=== PATIENT | female | born 1935 | race Caucasian/White ===

== ENCOUNTER 2021-08-05 16:27 | Emergency (ER) | payer MEDICARE, SELFPAY ==
--- NOTE | ~2021-08-05 | XR_ITS ---
EXAM: XR wrist RT min 3V, XR forearm RT 2V HISTORY: swelling,bruising,PT CANNOT PINPOINT PAINFUL AREA COMPARISON: None available FINDINGS: Decreased mineralization. No acute fracture or dislocation. Scattered degenerative changes in the right wrist, hand, and elbow. IMPRESSION: No acute osseous finding in the right wrist or forearm. Reviewed, dictated and finalized at location K. IMPRESSION: No acute osseous finding in the right wrist or forearm.
--- NOTE | ~2021-08-05 | XR_ITS ---
EXAM: XR wrist LT min 3V, XR forearm LT 2V HISTORY: pain, swelling, bruising COMPARISON: None available FINDINGS: Decreased mineralization. Scattered degenerative changes in the rest, hand, and elbow. Sma ll osseous fragment projecting over the triquetrum in the oblique lateral view, with sclerotic margin s. No other fracture. No dislocation. IMPRESSION: Acute versus chronic left triquetral fracture. Correlate with point tenderness. No other acute or pot entially acute osseous finding in the left wrist or forearm. Reviewed, dictated and finalized at location K. IMPRESSION: Acute versus chronic left triquetral fracture. Correlate with point tenderness. No other acute or potentially acute osseous finding in the left wrist or forea rm.
[2021-08-05 16:30] VITALS: BP 130/74; PULSE 65; RESP 14; TEMP 36.4; O2SAT 98
[2021-08-05 16:39] VITALS: RESP 16
--- NOTE | 2021-08-05 17:57 | ED.FALL ---
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 Patient was seated in her chair, when she went to get up, the chair fell out behind her, causing her to fall to the ground and catching herself with her hands. Fall was witnessed by [facility] staff. She did not hit her head or lose consciousness. Patient denies any low back pain presently or at time of fall. Patient was evaluated by the TEAM ASSISTANT at the nursing facility about 4 hours after the fall, who recommended ED visit due to swelling swelling in bilateral wrists. Patient currently reporting some mild pain in her wrists. No paresthesias or difficulty moving her digits. Patient states that she was in her usual state of health this morning, and denies any chest pain, shortness of breath, headaches, weakness, lightheadedness. Related Data Allergies Allergy/AdvReac Type Severity Reaction Status Date / Time Sulfa (Sulfonamide Allergy Severe SWELLING Verified 08/05/21 16:44 Antibiotics) Review of Systems Review of Systems: Gen.: Denies fevers or chills Eyes: Denies eye pain or visual change ENT: Denies congestion Respiratory: Denies shortness of breath or cough CV: Denies chest pain or palpitations GI: Denies abdominal pain nausea, emesis or diarrhea denies burning, urgency, frequency or hematuria Musculoskeletal: Denies back pain or muscle pain Neuro: Denies numbness, tingling, weakness or focal weakness Skin: Denies rash Except as documented, all other systems reviewed and negative All systems reviewed & are unremarkable except as noted in HPI and below Exam Narrative: APPEARANCE: Well appearing, no pain in distress, well-nourished. Head: normocephalic and atraumatic. EYES: PERRLA/EOMI, conjunctivae clear NOSE: No nasal drainage EARS: External ear normal in appearance THROAT: Oropharynx is clear. Mucous membranes are moist. NECK: Supple. No adenopathy, no masses. RESPIRATORY: Airway patent, respirations nonlabored. Clear to auscultation bilaterally, no rales, rhonchi, wheezing. CARDIOVASCULAR: 2+ radial and ulnar pulses bilaterally. Brisk capillary refill. Regular rate and rhythm without murmurs, rubs, or gallops. ABDOMINAL: Normoactive bowel sounds. Soft, nontender, nondistended. No rebound tenderness or guarding. MUSCULOSKELETAL: Bilateral wrists with swelling and bruising over ulnar aspect. No bony tenderness along bilateral carpal bones, although wrist extension elicits pain in left proximal wrist. No snuff box tenderness bilaterally. Palpation of right forearm bones elicits pain in right wrist. Full range of motion of bilateral hands. No midline tenderness along CT or L-spine. Full range of motion of torso without pain. Ambulatory without pain. NEURO: Sensation intact over bilateral hands and forearms. Normal speech. No focal neurologic deficits. SKIN: Skin is warm and dry. No rashes. PSYCHIATRIC: Normal affect/mood. Course Vital Signs Vital signs: Vital Signs Temperature 97.5 F L 08/05/21 16:30 Pulse Rate 65 08/05/21 16:30 Respiratory Rate 14 08/05/21 16:30 Blood Pressure 130/74 08/05/21 16:30 Pulse Oximetry 98 08/05/21 16:30 Temperature 97.5 F L 08/05/21 16:30 Pulse Rate 65 08/05/21 16:30 Respiratory Rate 16 08/05/21 16:39 Blood Pressure 130/74 08/05/21 16:30 Pulse Oximetry 98 08/05/21 16:30 MDM - Fall MDM Narrative Medical decision making narrative: 85-year-old female here with bilateral wrist pain and swelling after a fall from seated earlier today. History consistent with mechanical fall, patient states the chair fell out from under her. She was in her usual state of health this morning and presently (aside from w
== END 2021-08-05 19:35 ==
PROVIDERS: Emergency Provider Emergency Medicine
DX: S62.102A Fracture of unspecified carpal bone, left wrist, initial encounter for closed fracture (principal); Z88.2 Allergy status to sulfonamides; W07.XXXA Fall from chair, initial encounter
CPT/HCPCS: 29125; 73090; 73110; 99284

== ENCOUNTER 2023-04-03 19:30 | Emergency (ER) | payer MEDICARE, SELFPAY ==
--- NOTE | ~2023-04-03 | XR_ITS ---
EXAMINATION: XR chest 2V Exam Date/Time: 04/03/2023 20:33 VISUAL SPECIALIST HISTORY: rsv, cough, r/o PNA Comparison: 07/14/2011. RESULT: Lines, tubes, and devices: None. Lungs and pleura: Streaky and subsegmental bibasilar opacities. Minimal posterior costophrenic angle blunting. Cardiomediastinal silhouette: Stable. Other: No acute osseous or upper abdominal finding. IMPRESSION: Subsegmental bibasilar atelectasis/consolidation. Small bilateral effusions. Reviewed, dictated and finalized at location K. AL SPECIALIST
[2023-04-03 19:28] VITALS: BP 126/69; PULSE 64; RESP 20; TEMP 37.4; O2SAT 94
[2023-04-03 19:37] VITALS: O2SAT 94
--- NOTE | 2023-04-03 21:16 | ED.GENADULT ---
HPI - General Adult General Chief complaint: Unspecified Stated complaint: Dx'd WITH RSV TODAY, FAMILY WANTS EVAL. Time Seen by Provider: 04/03/23 19:36 Source: patient and family Mode of arrival: EMS Limitations: dementia History of Present Illness HPI narrative: Patient is an 87-year-old female, with PMH of dementia/A&OX1 at baseline, who presents to the ED via EMS with report of RSV. Daughter at bedside assisted in providing patient's information. Patient is resident of [facility]. She has had a persistent cough for the last several days. Patient tested positive for RSV today. Several other residents at the facility have been diagnosed as well. Per care home report, patient's oxygen was in the upper 80s today, however upon arrival oxygen 94-96% on room air. Patient frequently coughing upon evaluation, but denies shortness of breath. Denies chest pain. Daughter denies recent fevers. Denies nausea, vomiting. Related Data Home Medications Medication Instructions Recorded Confirmed amlodipine 5 mg tablet 5 mg PO DAILY 08/08/21 08/08/21 aspirin 81 mg capsule 81 mg PO DAILY 08/08/21 08/08/21 atorvastatin 10 mg tablet 10 mg PO DAILY 08/08/21 08/08/21 donepezil 10 mg tablet 10 mg PO QHS 08/08/21 08/08/21 ezetimibe 10 mg tablet 10 mg PO DAILY 08/08/21 08/08/21 fluoride (sodium) 1.1 % dental 1 applic dental DAILY 08/08/21 08/08/21 paste (PreviDent 5000 Booster Plus) furosemide 20 mg tablet 10 mg PO QAM 08/08/21 08/08/21 lisinopril 20 mg tablet 20 mg PO DAILY 08/08/21 08/08/21 loperamide 2 mg tablet (Imodium 2 mg PO Q6H PRN 08/08/21 08/08/21 A-D) memantine 10 mg tablet 10 mg PO BID 08/08/21 08/08/21 niacin 500 mg tablet 500 mg PO DAILY 08/08/21 08/08/21 omega-3 fatty acids-fish oil 340 1 cap PO DAILY 08/08/21 08/08/21 mg-1,000 mg capsule (Fish Oil) sertraline 50 mg tablet 50 mg PO DAILY 08/08/21 08/08/21 Allergies Allergy/AdvReac Type Severity Reaction Status Date / Time Sulfa (Sulfonamide Allergy Severe SWELLING Verified 08/08/21 13:42 Antibiotics) Review of Systems Review of Systems: CONSTITUTIONAL: Denies fever, chills, or sweats. CARDIOVASCULAR: Denies chest pain. RESPIRATORY: See HPI. GASTROINTESTINAL: Denies abdominal pain, nausea, vomiting, or diarrhea. All systems reviewed & are unremarkable except as noted in HPI and below PMFSH Past Medical History Medical History Dementia HLD (hyperlipidemia) HTN (hypertension) Pacemaker Surgical History Surgical History S/P clamping of cerebral aneurysm Family History Family History Other Diabetes mellitus HLD (hyperlipidemia) Hypertension Social History Social History Smoking status: Never smoker Alcohol intake: never Substance use type: does not use Living arrangements: [facility] Occupation/Education: retired Gender identity (if verbalized by the patient): Female Exam Narrative: GENERAL: Elderly, well-nourished, non-toxic, in no acute distress. HEAD: Normocephalic, atraumatic. RESPIRATORY: Airway patent, respirations nonlabored. Occasional rhonchi in bases bilaterally. CARDIOVASCULAR: Regular rate and rhythm without murmurs, rubs, or gallops. ABDOMINAL: Soft, nontender, nondistended. Normoactive BS. MUSCULOSKELETAL: Moves all extremities. No gross deformities. SKIN: Warm, dry, normal color. NEURO: Alert, pleasantly confused. Speech clear. Cranial nerves II-XII grossly intact. Steady gait. No ataxic movements. PSYCHIATRIC: Appropriate mood and affect. Normal interaction. Course Vital Signs Vital signs: Vital Signs Temperature 99.3 F 04/03/23 19:28 Pulse Rate 64 04/03/23 19:28 Respiratory Rate 20 04/03/23 19:28 Blood Pressure 1
--- NOTE | 2023-04-03 23:22 | PC.NURSE ---
care and report given to BENJAMIN Prakash. all questions answered.
[2023-04-04 00:10] VITALS: BP 115/70; PULSE 67; RESP 18; O2SAT 98
== END 2023-04-04 00:12 ==
PROVIDERS: Emergency Provider Physician Assistant
DX: J12.1 Respiratory syncytial virus pneumonia (principal); F03.90 Unspecified dementia, unspecified severity, without behavioral disturbance, psychotic disturbance, mood disturbance, and anxiety; E78.5 Hyperlipidemia, unspecified; I10 Essential (primary) hypertension; Z95.0 Presence of cardiac pacemaker; Z79.82 Long term (current) use of aspirin
CPT/HCPCS: 71046; 99283

== ENCOUNTER 2023-04-10 19:14 | Inpatient (IN) | payer MEDICARE, SELFPAY ==
[2023-04-10] VITALS (7 sets, daily range): BP systolic 111–140; BP diastolic 51–82; PULSE 64–78; RESP 15–17; TEMP 36.4–37; O2SAT 90–98; BMI 25.9
--- NOTE | ~2023-04-10 | XR_ITS ---
EXAMINATION: XR chest 1V portable DATE: 04/10/2023 19:47 INDICATION: Shortness of breath. Cough. TECHNIQUE: A single frontal view of the chest was obtained. COMPARISON: Chest 2 views 04/03/2023 FINDINGS: There is mild atelectasis at left lung base. No pleural effusion or pneumothorax. The heart size is normal. There is a left chest wall pacer with leads in the right atrium and right ventricle. IMPRESSION: 1. Mild atelectasis at left lung base. Reviewed, dictated and finalized at location E. NG TECHNICIAN
--- NOTE | 2023-04-10 19:22 | ECG_ITS ---
Measurements Intervals [place] Rate: 67 P: 147 NH: 205 QRS: -73 QRSD: 114 T: 91 QT: 424 QTc: 449 Interpretive Statements ELECTRONIC ATRIAL PACEMAKER LEFT ANTERIOR FASCICULAR BLOCK CANNOT RULE OUT SEPTAL INFARCT, AGE INDETERMINATE BORDERLINE ST-T WAVE ABNORMALITY- HIGH LATERAL LEADS ABNORMAL ECG NO PREVIOUS ECG AVAILABLE FOR COMPARISON Electronically Signed On 04-10-2023 19:35:19 DRAWING IN HAND by Yo Browne D.O.
[2023-04-10 19:35] LABS: Basophils Absolute Auto 0.1 K/mm3 (0.0-0.1); Basophils Percent Auto 0.7 % (0.2-1.2); Eosinophils Absolute Auto 0.2 K/mm3 (0-0.3); Eosinophils Percent Auto 2.2 % (0-4.4); Hematocrit 42.8 % (37.0-47.0); Hemoglobin 13.6 g/dL (12.0-15.0); Immature Granulocyte Absolute 0.03 K/mm3 (0.00-0.031); Immature Granulocyte Percent A 0.3 % (0-0.5); Lymphocytes Absolute Auto 1.89 K/mm3 (0.9-3.2); Lymphocytes Percent Auto 20.5 % (18.3-44.2); Mean Corpuscular HGB Conc 31.8 g/dl (32-36); Mean Corpuscular Hemoglobin 32.5 pg (26-34); Mean Corpuscular Volume 102.1 fl (80-100); Mean Platelet Volume 10.5 fl (7.4-10.4); Monocytes Absolute Auto 0.8 K/mm3 (0.1-0.6); Monocytes Percent Auto 8.6 % (2.6-8.5); Neutrophils Absolute Auto 6.3 K/mm3 (1.3-6.7); Neutrophils Percent Auto 67.7 % (45.5-73.1); Platelet Count Result 189 k/mm3 (150-375); Red Blood Count 4.19 M/mm3 (4.2-5.4); White Blood Count 9.2 K/mm3 (4.5-10.0)
[2023-04-10 19:49] LABS: Alanine Aminotransferase 26 U/L (6-35); Alkaline Phosphatase 81 U/L (38-126); Anion Gap 10 mmol/L (8-16); Aspartate Amino Transferase 32 U/L (14-36); Blood Urea Nitrogen 20 mg/dL (7-17); Calcium 8.6 mg/dL (8.4-10.2); Carbon Dioxide 29 mmol/L (22-30); Chloride 104 mmol/L (98-107); Estimated Glomerular Filt Rate > 60; Glucose 199 mg/dL (65-110); Potassium 3.7 mmol/L (3.4-5.0); Sodium 143 mmol/L (137-145)
[2023-04-10 20:12] LABS: Influenza A QL RT-PCR Negative (Negative); Influenza B QL RT-PCR Negative (Negative); RSV RNA, RT-PCR Positive (Negative); SARS-CoV-2 RNA PCR Negative (Negative)
--- NOTE | 2023-04-10 20:12 | ED.SOB ---
HPI - SOB/Dyspnea General Chief Complaint: Shortness of Breath/Dyspnea Stated Complaint: RSV+, EVAL FOR PNE, COUGH Time Seen by Provider: 04/10/23 19:43 History of Present Illness HPI Narrative: Patient is an 87-year-old female with history of dementia presenting with hypoxia. Patient is coming from a memory care facility. She was noted to have O2 sats in the 80s on room air. She was diagnosed with RSV about a week ago. States that she has had a cough but denies any other complaints. No chest pain or leg swelling. No abdominal pain, nausea or vomiting. Related Data Home Medications Medication Instructions Recorded Confirmed amlodipine 5 mg tablet 5 mg PO DAILY 08/08/21 08/08/21 aspirin 81 mg capsule 81 mg PO DAILY 08/08/21 08/08/21 atorvastatin 10 mg tablet 10 mg PO DAILY 08/08/21 08/08/21 donepezil 10 mg tablet 10 mg PO QHS 08/08/21 08/08/21 ezetimibe 10 mg tablet 10 mg PO DAILY 08/08/21 08/08/21 fluoride (sodium) 1.1 % dental 1 applic dental DAILY 08/08/21 08/08/21 paste (PreviDent 5000 Booster Plus) furosemide 20 mg tablet 10 mg PO QAM 08/08/21 08/08/21 lisinopril 20 mg tablet 20 mg PO DAILY 08/08/21 08/08/21 loperamide 2 mg tablet (Imodium 2 mg PO Q6H PRN 08/08/21 08/08/21 A-D) memantine 10 mg tablet 10 mg PO BID 08/08/21 08/08/21 niacin 500 mg tablet 500 mg PO DAILY 08/08/21 08/08/21 omega-3 fatty acids-fish oil 340 1 cap PO DAILY 08/08/21 08/08/21 mg-1,000 mg capsule (Fish Oil) sertraline 50 mg tablet 50 mg PO DAILY 08/08/21 08/08/21 Allergies Allergy/AdvReac Type Severity Reaction Status Date / Time Sulfa (Sulfonamide Allergy Severe SWELLING Verified 08/08/21 13:42 Antibiotics) Review of Systems Review of Systems: ROS unobtainable: Yes unobtainable due to mental status and other (Baseline dementia) [facility] Past Medical History Medical History Dementia HLD (hyperlipidemia) HTN (hypertension) Pacemaker Surgical History Surgical History S/P clamping of cerebral aneurysm Family History Family History Other Diabetes mellitus HLD (hyperlipidemia) Hypertension Social History Social History Smoking status: Never smoker Alcohol intake: never Substance use type: does not use Living arrangements: [facility] Occupation/Education: retired Gender identity (if verbalized by the patient): Female Exam Narrative: GENERAL: Elderly female sitting up in bed in no acute distress HEAD: Normocephalic, atraumatic. EYES: PERRLA and EOMI. ENT: Mucous membranes moist. NECK: Supple. CHEST: No respiratory distress. Scattered wheeze HEART: Regular rate and rhythm ABDOMEN: Soft, nontender, nondistended EXTREMITIES: Normal range of motion. No edema. SKIN: Warm, dry, no rash. NEURO: Alert and oriented x1. PSYCH: Normal mood and affect. Course Vital Signs Vital signs: Vital Signs Temperature 98.6 F 04/10/23 19:16 Pulse Rate 78 04/10/23 19:16 Respiratory Rate 17 04/10/23 19:16 Blood Pressure 140/82 04/10/23 19:16 Pulse Oximetry 90 04/10/23 19:16 Oxygen Delivery Nasal Cannula 04/10/23 19:16 Oxygen Flow Rate 4 04/10/23 19:16 Temperature 98.6 F 04/10/23 19:16 Pulse Rate 64 04/10/23 21:58 Respiratory Rate 15 04/10/23 21:58 Blood Pressure 132/60 04/10/23 21:13 Pulse Oximetry 92 04/10/23 21:13 Oxygen Delivery Nasal Cannula 04/10/23 19:39 Oxygen Flow Rate 4 04/10/23 19:39 MDM - SOB/Dyspnea MDM Narrative Medical decision making narrative: 87-year-old female presenting with hypoxia in the setting of recent RSV diagnosis. patient desats to the 80s on room air. She is saturating well on 4 L nasal cannula. Exam remarkable for the above. Blood work without significant abnormalities. Patien
--- NOTE | 2023-04-10 20:43 | PM.IMHP ---
H&P: HPI History of Present Illness Date/Time: 04/10/23 20:43 Chief Complaint: Low pulse ox Narrative: This is an 87-year-old female with past medical history significant for dementia, dyslipidemia, hypertension, pacemaker. Patient resides at [facility] in long term. Had been diagnosed with RSV was brought to the emergency room due to low pulse ox. History has been obtained from daughter who is at bedside patient is unable to contribute in a meaningful way to history taking due to her dementia. Preliminary workup was significant for tested positive for RSV. Chest x-ray was reported as: EXAMINATION: XR chest 1V portable DATE: 04/10/2023 19:47 INDICATION: Shortness of breath. Cough. TECHNIQUE: A single frontal view of the chest was obtained. COMPARISON: Chest 2 views 04/03/2023 FINDINGS: There is mild atelectasis at left lung base. No pleural effusion or pneumothorax. The heart size is normal. There is a left chest wall pacer with leads in the right atrium and right ventricle. IMPRESSION: 1. Mild atelectasis at left lung base. Review of Systems Review of Systems: ROS unobtainable: Yes unobtainable due to medical condition (Dementia) [facility] Past Medical History Medical History Dementia HLD (hyperlipidemia) HTN (hypertension) Pacemaker Surgical History Surgical History S/P clamping of cerebral aneurysm Family History Family History Other Diabetes mellitus HLD (hyperlipidemia) Hypertension Social History Social History Smoking status: Never smoker Second hand tobacco smoke exposure: No Alcohol intake: never Substance use: never Substance use type: does not use Living arrangements: [facility] Occupation/Education: retired Gender identity (if verbalized by the patient): Female Spiritual care concerns: No Meds Home Medications and Allergies Home Medications Medication Instructions Recorded Confirmed Type amlodipine 5 mg tablet 5 mg PO HS 08/08/21 04/11/23 History atorvastatin 10 mg tablet 10 mg PO DAILY 08/08/21 04/11/23 History donepezil 10 mg tablet 10 mg PO QHS 08/08/21 04/11/23 History ezetimibe 10 mg tablet 10 mg PO DAILY 08/08/21 04/11/23 History furosemide 20 mg tablet 10 mg PO QAM 08/08/21 04/11/23 History memantine 10 mg tablet 10 mg PO BID 08/08/21 04/11/23 History sertraline 50 mg tablet 50 mg PO DAILY 08/08/21 04/11/23 History albuterol sulfate 90 mcg/actuation 2 puff inhalation QID PRN 04/03/23 04/11/23 Rx aerosol inhaler shortness of breath or wheezing #6.7 grams benzonatate 200 mg capsule 200 mg PO TID PRN cough #20 caps 04/03/23 04/11/23 Rx melatonin 5 mg tablet 5 mg PO HS PRN Insomnia 04/11/23 04/11/23 History Allergies Allergy/AdvReac Type Severity Reaction Status Date / Time Sulfa (Sulfonamide Allergy Severe SWELLING Verified 08/08/21 13:42 Antibiotics) Vital Signs Vital Signs - 24 hr 04/10/23 19:16 04/10/23 19:38 04/10/23 19:39 Temperature 98.6 F Pulse Rate 78 77 Respiratory Rate 17 Blood Pressure 140/82 Pulse Oximetry 90 94 Oxygen Delivery Nasal Cannula Nasal Cannula Oxygen Flow Rate 4 4 Exam Narrative: Patient is in a stretcher Const: General: comfortable, no acute distress, well developed, alert, awake and average body habitus Nutritional Appearance: average body habitus Orientation/consciousness: confusion HENMT: Head: normal to inspection, normocephalic and atraumatic Ears: hearing grossly normal bilaterally Face/Nose/Sinus: normal facial exam Face and sinus: normal facial exam Eyes: General: appearance normal, both eyes and all related structures Pupils: Equal, round and reactive pupils present EOM: EOMs intact bilaterally Neck: Neck: ful
[2023-04-10] MEDS: methylPREDNISolone SOD SUCC 125 MG VIAL IV PUSH (21:12)
[2023-04-10] MEDS: ALBUTEROL SULFATE NEB 2.5 MG/3 ML INH 10 MG INHALATION (21:57)
[2023-04-10] MEDS: IPRATROPIUM BR 0.02% INH SOLN 0.5 MG/2.5 ML VIAL INHALATION (21:57)
--- NOTE | 2023-04-10 23:13 | ECG_ITS ---
Measurements Intervals [place] Rate: 71 P: [place]: 0 QRS: -62 QRSD: 121 T: 87 QT: 421 QTc: 458 Interpretive Statements SINUS RHYTHM LEFT ANTERIOR FASCICULAR BLOCK BORDERLINE ST-T WAVE ABNORMALITY- HIGH LATERAL LEADS BASELINE ARTIFACT- I, II, AVR, AVL, V3-V6 ABNORMAL ECG COMPARED TO ECG 04/10/2023 19:29:02 SINUS RHYTHM NOW PRESENT Electronically Signed On 04-11-2023 6:43:22 BRANCH ACCOUNT EXECUTIVE by Yo Browne D.O.
[2023-04-11] VITALS: PULSE 69
--- NOTE | 2023-04-11 01:17 | ADMGEN ---
This patient, Laura Matute, was admitted to 3 [facility] Surg Room 302-01. Patient/family oriented to hospital policies and general routines including ID bracelet, bed and alarms, visiting hours, pain management, procedures, bathroom and other care routines, personal items, smoking policy, room service/diet, and visiting hours. Information on how to activate the Rapid Response Team has been discussed. Patient/Family are encouraged to report perceived risks to care and to ask questions if they do not understand what they are told or what they should do.
--- NOTE | 2023-04-11 01:17 | PC.NURSE ---
Called [facility]. Spoke to Yani BARRAZA to received patients current medications. Entered and verified over the phone.
[2023-04-11 04:00] VITALS: PULSE 68
[2023-04-11 06:00] VITALS: BP 107/56; PULSE 70; RESP 16; TEMP 36.4; O2SAT 95
[2023-04-11 08:00] VITALS: PULSE 70; RESP 16; O2SAT 95
[2023-04-11 08:13] LABS: Basophils Percent Auto 0.3 % (0.2-1.2); Hematocrit 37.2 % (37.0-47.0); Hemoglobin 12.2 g/dL (12.0-15.0); Immature Granulocyte Absolute 0.06 K/mm3 (0.00-0.031); Immature Granulocyte Percent A 0.7 % (0-0.5); Lymphocytes Absolute Auto 0.68 K/mm3 (0.9-3.2); Lymphocytes Percent Auto 7.9 % (18.3-44.2); Mean Corpuscular HGB Conc 32.8 g/dl (32-36); Mean Corpuscular Volume 100.5 fl (80-100); Mean Platelet Volume 10.6 fl (7.4-10.4); Monocytes Absolute Auto 0.1 K/mm3 (0.1-0.6); Monocytes Percent Auto 0.9 % (2.6-8.5); Neutrophils Absolute Auto 7.7 K/mm3 (1.3-6.7); Neutrophils Percent Auto 90.2 % (45.5-73.1); Platelet Count Result 173 k/mm3 (150-375); Red Cell Distribution Width 12.9 % (11.5-14.5); White Blood Count 8.6 K/mm3 (4.5-10.0)
[2023-04-11 08:22] LABS: Anion Gap 14 mmol/L (8-16); Blood Urea Nitrogen 20 mg/dL (7-17); Calcium 8.8 mg/dL (8.4-10.2); Carbon Dioxide 24 mmol/L (22-30); Chloride 105 mmol/L (98-107); Estimated CRCL calculation 37 ml/min; Estimated Glomerular Filt Rate > 60; Glucose 197 mg/dL (65-110); Potassium 3.3 mmol/L (3.4-5.0); Sodium 143 mmol/L (137-145)
[2023-04-11] MEDS: ATORVASTATIN 10 MG TABLET PO (08:47)
[2023-04-11] MEDS: POTASSIUM CHLORIDE 20 MEQ PACKET (FOR LIQUID) 40 MEQ PO (08:47)
[2023-04-11] MEDS: MEMANTINE 10 MG TABLET PO (08:47)
[2023-04-11] MEDS: SERTRALINE HCL 50 MG TABLET PO (08:47)
[2023-04-11] MEDS: ENOXAPARIN 40 MG/0.4 ML SYRINGE SUB-Q (08:47)
[2023-04-11 13:49] VITALS: BP 122/68; PULSE 70; RESP 18; TEMP 36.8; O2SAT 95
--- NOTE | 2023-04-11 14:22 | PM.DS ---
DS: Admitting Diagnosis Discharge Date 04/11/23 Admitting Diagnosis hypoxia DS: Discharge Diagnosis Discharge Diagnosis (1) Respiratory failure with hypoxia: Code(s): J96.91 - Respiratory failure, unspecified with hypoxia Status: Resolved Assessment and Plan: supplemental oxygen weaned back to room air, satting >92% CXR showed mild atelectasis at left lung base. (2) Respiratory syncytial virus (RSV) infection: Code(s): B33.8 - Other specified viral diseases Status: Acute Assessment and Plan: RSV positive on admission weaned off supplemental oxygen Supportive care (3) Dementia: Code(s): F03.90 - Unspecified dementia, unspecified severity, without behavioral disturbance, psychotic disturbance, mood disturbance, and anxiety Status: Chronic Assessment and Plan: Continue memantine plan to return to [place]/memory care at d/ (4) HTN (hypertension): Code(s): I10 - Essential (primary) hypertension Status: Chronic Assessment and Plan: continue home meds DS: Summary Hospital Course Hospital Course: Patient is an 87 YO female with PMH of dementia, dyslipidemia, hypertension, pacemaker admitted for hypoxia after being diagnosed with RSV. Patient resides at Memory Care Unit in half-way. She is in no acute distress, all other work up negative for pneumonia. She can be discharged today if able to wean off oxygen back to room air. She has a mild, intermittent cough with no sputum. No dyspnea. Plan to return to Memory care at d/. Status at Discharge Functional status at discharge: wheelchair bound Overall status at discharge: patient is back to baseline Time Spent with Patient Time attestation: Total time spent providing and/or coordinating discharge services: Exam Narrative: GENERAL: Elderly female sitting up in bed in no acute distress HEAD: Normocephalic, atraumatic. EYES: PERRLA and EOMI. ENT: Mucous membranes moist. NECK: Supple. CHEST: No respiratory distress. Lungs clear to auscultation. HEART: RRR ABDOMEN: Soft, nontender, nondistended. BS present and active. EXTREMITIES: Normal range of motion. No edema. SKIN: Warm, dry, no rash. NEURO: Alert and oriented x1. Baseline. PSYCH: Normal mood and affect. DS: Data Data Completed and Pending Labs on day of discharge: Labs from last 24 hours 01/05/24 01/05/24 01/04/24 07:40 07:39 19:29 WBC 8.6 9.2 RBC 3.70 L 4.19 L Hgb 12.2 13.6 Hct 37.2 42.8 MCV 100.5 H 102.1 H MCH 33.0 32.5 MCHC 32.8 31.8 L RDW 12.9 13.0 Plt Count 173 189 MPV 10.6 H 10.5 H Immature Gran % (Auto) 0.7 H 0.3 Neut % (Auto) 90.2 H 67.7 Lymph % (Auto) 7.9 L 20.5 Williamson % (Auto) 0.9 L 8.6 H Eos % (Auto) 0.0 2.2 Baso % (Auto) 0.3 0.7 Lymph # (Auto) 0.68 L 1.89 Williamson # (Auto) 0.1 0.8 H Eos # (Auto) 0.0 0.2 Baso # (Auto) 0.0 0.1 Abs Immat Gran (auto) 0.06 H 0.03 Absolute Neuts (auto) 7.7 H 6.3 Absolute Nucleated RBC 0.0 0.0 Nucleated RBC % 0.0 0.0 Sodium 143 143 Potassium 3.3 L 3.7 Chloride 105 104 Carbon Dioxide 24 29 Anion Gap 14 10 BUN 20 H 20 H Creatinine 0.80 0.80 Estim Creat Clear Calc 37 Not Reportable Estimated GFR > 60 > 60 Glucose 197 H 199 H Calcium 8.8 8.6 Total Bilirubin 1.0 AST 32 ALT 26 Alkaline Phosphatase 81 Total Protein 7.0 Albumin 4.0 Influenza A (RT-PCR) Negative Influenza B (RT-PCR) Negative RSV (RT-PCR) Positive A SARS-CoV-2 RNA (RT-PCR) Negative Discharge Plan Discharge Attending physician on discharge: Juan Alberto Aguilera Discharging Clinician: Sherry Norris Anticipated Discharge Date/Time: 04/11/23 14:30 Patient Disposition: [facility] Skilled Nursing/Asst Living Activity: as tolerated Diet: heart healthy Discharge Instructions: Care Coordination: Patient to participate with in house therapy team at [facility], for PT/OT
== END 2023-04-11 15:23 | DRG 189 ==
LOC: ANHED 22:28 → ANH3MEDSUR 22:40
PROVIDERS: Student in an Organized Health Care Education/Training Program; Admitting Provider Internal Medicine; Emergency Provider Emergency Medicine; Visit Provider Nurse Practitioner
DX: J96.91 Respiratory failure, unspecified with hypoxia (principal); B97.4 Respiratory syncytial virus as the cause of diseases classified elsewhere; I10 Essential (primary) hypertension; F03.90 Unspecified dementia, unspecified severity, without behavioral disturbance, psychotic disturbance, mood disturbance, and anxiety; E78.5 Hyperlipidemia, unspecified; Z95.0 Presence of cardiac pacemaker; Z79.82 Long term (current) use of aspirin; Z20.822 Contact with and (suspected) exposure to COVID-19
CPT/HCPCS: 36415; 71045; 80048; 80053; 85025; 87637; 93005; 94640; 96374; 97165; 99285; A9270; J1650; J2930

== ENCOUNTER 2023-12-26 08:29 | Emergency (ER) | payer MEDICARE, SELFPAY ==
--- NOTE | ~2023-12-26 | XR_ITS ---
EXAMINATION: XR chest 2V DATE: 12/26/2023 10:26 INDICATION: Syncope. Back pain. TECHNIQUE: frontal and lateral views of the chest were obtained. COMPARISON: Chest radiograph dated 04/10/2023 FINDINGS: Airspace opacities in the posterior aspect of one of the lungs on the lateral projection were likely on the left. There is blunting at the posterior sulcus suggests possibility of an associated small pl eural effusion. No pulmonary edema or pneumothorax. Heart size within normal limits for AP technique. Dual lead pacemaker seen with leads projecting over the expected locations of the right atrium and r ight ventricle. Moderate bilateral glenohumeral osteoarthritis. IMPRESSION: 1. Opacities at the posterior left lung base which could represent atelectasis or pneumonia with poss ible small left pleural effusion. Reviewed, dictated and finalized at location B. IMPRESSION: 1. Opacities at the posterior left lung base which could represent atelectasis or pneumonia with possible small left pleural effusion.
[2023-12-26 08:28] VITALS: BP 108/70; PULSE 65; RESP 13; TEMP 36.4; O2SAT 97
--- NOTE | 2023-12-26 09:25 | ECG_ITS ---
Test Date: 2023-12-26 08:38:29 Measurements Intervals [place] Rate: 65 P: 0 MD: 0 QRS: 261 QRSD: 149 T: 71 QT: 497 QTc: 517 Interpretive Statements ELECTRONIC VENTRICULAR PACEMAKER BASELINE ARTIFACT- I, II, III, AVR, AVL, AVF, V1-V6 NO FURTHER INTERPRETATION IS POSSIBLE ATYPICAL ECG No previous ECG available for comparison Electronically Signed On 12-26-2023 10:44:45 CDT by Yo Browne D.O.
[2023-12-26 09:49] VITALS: BP 98/73; PULSE 65; RESP 15; O2SAT 99
[2023-12-26 09:56] LABS: Basophils Absolute Auto 0.1 K/mm3 (0.0-0.1); Basophils Percent Auto 1.1 % (0.2-1.2); Eosinophils Absolute Auto 0.1 K/mm3 (0-0.3); Eosinophils Percent Auto 1.4 % (0-4.4); Hematocrit 43.1 % (37.0-47.0); Hemoglobin 13.9 g/dL (12.0-15.0); Immature Granulocyte Absolute 0.03 K/mm3 (0.00-0.031); Immature Granulocyte Percent A 0.4 % (0-0.5); Lymphocytes Absolute Auto 1.31 K/mm3 (0.9-3.2); Lymphocytes Percent Auto 17.3 % (18.3-44.2); Mean Corpuscular HGB Conc 32.3 g/dl (32-36); Mean Corpuscular Hemoglobin 32.6 pg (26-34); Mean Corpuscular Volume 101.2 fl (80-100); Mean Platelet Volume 10.4 fl (7.4-10.4); Monocytes Absolute Auto 0.4 K/mm3 (0.1-0.6); Monocytes Percent Auto 5.8 % (2.6-8.5); Neutrophils Absolute Auto 5.6 K/mm3 (1.3-6.7); Platelet Count Result 188 k/mm3 (150-375); Red Blood Count 4.26 M/mm3 (4.2-5.4); White Blood Count 7.6 K/mm3 (4.5-10.0)
[2023-12-26 10:06] LABS: Alanine Aminotransferase 15 U/L (6-35); Albumin Level 3.8 g/dL (3.5-5.1); Alkaline Phosphatase 91 U/L (38-126); Anion Gap 8 mmol/L (4-12); Aspartate Amino Transferase 30 U/L (14-36); Bilirubin,Total 1.4 mg/dL (0.2-1.3); Blood Urea Nitrogen 18 mg/dL (7-17); Calcium 8.8 mg/dL (8.4-10.2); Carbon Dioxide 30 mmol/L (22-30); Chloride 102 mmol/L (98-107); Estimated CRCL calculation 33 ml/min; Estimated Glomerular Filt Rate 52; Glucose 124 mg/dL (65-110); Potassium 4.2 mmol/L (3.4-5.0); Sodium 140 mmol/L (137-145)
[2023-12-26 10:18] LABS: Troponin I < 0.012 ng/mL (0.000-0.034)
--- NOTE | 2023-12-26 10:18 | ED.SYNCOPE ---
HPI - Syncope General Chief Complaint: Syncope Stated Complaint: near syncopal Time Seen by Provider: 12/26/23 09:25 Source: patient and family Mode of arrival: EMS Limitations: dementia History of Present Illness HPI narrative: This is an 87-year-old female that presents to the emergency department after a syncopal episode on the toilet. She was at her facility. On the toilet and passed out. This was witnessed. She did not fall or hit her head. Upon arrival of EMS her blood pressure was low, she was given a fluid bolus with improvement. Currently she reports feeling bad . Cannot localize any symptoms. Does not remember the incident. Her daughter reports she was recently found to have a UTI. Has been started on Macrobid Related Data Home Medications Medication Instructions Recorded Confirmed amlodipine 5 mg tablet 5 mg PO HS 08/08/21 04/11/23 atorvastatin 10 mg tablet 10 mg PO DAILY 08/08/21 04/11/23 donepezil 10 mg tablet 10 mg PO QHS 08/08/21 04/11/23 ezetimibe 10 mg tablet 10 mg PO DAILY 08/08/21 04/11/23 furosemide 20 mg tablet 10 mg PO QAM 08/08/21 04/11/23 memantine 10 mg tablet 10 mg PO BID 08/08/21 04/11/23 sertraline 50 mg tablet 50 mg PO DAILY 08/08/21 04/11/23 melatonin 5 mg tablet 5 mg PO HS PRN Insomnia 04/11/23 04/11/23 Allergies Allergy/AdvReac Type Severity Reaction Status Date / Time Sulfa (Sulfonamide Allergy Severe SWELLING Verified 12/26/23 08:42 Antibiotics) Review of Systems Review of Systems: ROS unobtainable: Yes unobtainable due to medical condition [facility] Past Medical History Medical History Dementia HLD (hyperlipidemia) HTN (hypertension) Pacemaker Surgical History Surgical History S/P clamping of cerebral aneurysm Family History Family History Other Diabetes mellitus HLD (hyperlipidemia) Hypertension Social History Social History Smoking status: Never smoker Second hand tobacco smoke exposure: No Alcohol intake: never Substance use: never Substance use type: does not use [place] Occupation/Education: retired Gender identity (if verbalized by the patient): Female Spiritual care concerns: No Exam Narrative: GENERAL: Elderly, well-nourished, and in no acute distress. HEAD: Normocephalic, atraumatic. EYES: PERRLA and EOMI. ENT: Nares clear, no rhinorrhea or epistaxis. Mucous membranes moist. Oropharynx without tonsillar hypertrophy exudate or other lesions. Bilateral TMs pearly bey non-bulging NECK: Supple. No adenopathy or masses. CHEST: Clear to auscultation. No respiratory distress. No wheezes rales or rhonchi HEART: Regular rate and rhythm. No murmur heard. Normal peripheral pulses. ABDOMEN: Soft, nontender, nondistended, normal active bowel sounds. EXTREMITIES: Normal range of motion. No edema. SKIN: Warm, dry, no rash. NEURO: No focal deficits. Alert and oriented x1. PSYCH: Normal mood and affect Course Course Emergency Course: Patient and family updated on workup. Discussed inpatient versus outpatient management of pneumonia. Daughter would like to trial further management outpatient with oral antibiotics Consultations Consultation #1: Patient's pacemaker was interrogated. It is showing it needs to be replaced in the next couple of months. Daughter reports she and the pull over are aware of this Date: 12/26/23 Vital Signs Vital signs: Vital Signs Temperature 97.6 F 12/26/23 08:28 Pulse Rate 65 12/26/23 08:28 Respiratory Rate 13 12/26/23 08:28 Blood Pressure 108/70 12/26/23 08:28 Pulse Oximetry 97 12/26/23 08:28 Oxygen Delivery Room Air 12/26/23 08:28 Temperature 97.6 F 12/26/23 08:28 Pulse Rate 65 12/26/23 09:49 Respirator
[2023-12-26] MEDS: SODIUM CHLORIDE 0.9% IV 1,000 ML 999 ML IV CONT (10:28)
[2023-12-26 10:48] LABS: Add Urine Microscopic? NO; Appearance Urine Clear (Clear); Color Urine Yellow (Yellow)
[2023-12-26 10:49] LABS: Bilirubin Urine Negative (Negative); Blood Urine Negative (Negative); Glucose Urine UA Negative (Negative); Ketones Urine Negative (Negative); Leukocyte Esterase Ur Negative LEU/UL (Negative); Nitrate Urine Negative (Negative); Protein Urine Negative (Negative)
[2023-12-26 11:28] LABS: Influenza A QL RT-PCR Negative (Negative); Influenza B QL RT-PCR Negative (Negative); RSV RNA, RT-PCR Negative (Negative); SARS-CoV-2 RNA PCR Negative (Negative)
[2023-12-26 14:15] VITALS: BP 134/80; PULSE 65; RESP 13; TEMP 36.6; O2SAT 97
== END 2023-12-26 14:51 ==
PROVIDERS: Emergency Provider Physician Assistant
DX: J18.9 Pneumonia, unspecified organism (principal); R55 Syncope and collapse; F03.90 Unspecified dementia, unspecified severity, without behavioral disturbance, psychotic disturbance, mood disturbance, and anxiety; E78.5 Hyperlipidemia, unspecified; I10 Essential (primary) hypertension; Z95.0 Presence of cardiac pacemaker; Z20.822 Contact with and (suspected) exposure to COVID-19
CPT/HCPCS: 36415; 71046; 80053; 81003; 84484; 85025; 87637; 93005; 96360; 96361; 99284; J7030

== ENCOUNTER 2024-02-15 09:41 | Emergency (ER) | payer MEDICARE, SELFPAY ==
--- NOTE | ~2024-02-15 | XR_ITS ---
Right Knee Technique: AP, lateral, and sunrise views were obtained. Clinical History: Pain and swelling Findings: No fracture or dislocation is seen. There is severe tricompartmental degenerative change, w ith tricompartment osteophyte formation and narrowing of the lateral compartment particular. Large kn ee joint effusion present. There is a probable 12 mm irregular loose body at the suprapatellar pouch region. Impression: Severe tricompartmental arthritis. Large joint effusion. 12 mm irregular loose body at the suprapatellar pouch region. Reviewed, dictated and finalized at location M. OIL CLERK Impression: Severe tricompartmental arthritis. Large joint effusion. 12 mm irregular loose body at the suprapatellar pouch region.
[2024-02-15 09:45] VITALS: BP 156/99; PULSE 83; RESP 16; TEMP 36.7; O2SAT 98
--- NOTE | 2024-02-15 10:26 | ED_ITS ---
HPI - General Adult General Chief complaint: Extremity Problem,Nontraumatic Stated complaint: swollen knee Time Seen by Provider: 02/15/24 10:03 History of Present Illness HPI narrative: Patient 88-year-old female who presents emergency department chief complaint of right knee pain and swelling. The patient is resident of local [facility] and reports no trauma she has been seeing physical therapy for strengthening of the right knee the patient on Friday noticed that she was having more pain in the right knee there were no falls no injuries patient normally uses a walker to ambulate today the facility noticed that her right knee was swollen. There is no redness, no fever Related Data Home Medications Medication Instructions Recorded Confirmed amlodipine 5 mg tablet 5 mg PO HS 08/08/21 04/11/23 atorvastatin 10 mg tablet 10 mg PO DAILY 08/08/21 04/11/23 donepezil 10 mg tablet 10 mg PO QHS 08/08/21 04/11/23 ezetimibe 10 mg tablet 10 mg PO DAILY 08/08/21 04/11/23 furosemide 20 mg tablet 10 mg PO QAM 08/08/21 04/11/23 memantine 10 mg tablet 10 mg PO BID 08/08/21 04/11/23 sertraline 50 mg tablet 50 mg PO DAILY 08/08/21 04/11/23 melatonin 5 mg tablet 5 mg PO HS PRN Insomnia 04/11/23 04/11/23 Allergies Allergy/AdvReac Type Severity Reaction Status Date / Time Sulfa (Sulfonamide Allergy Severe SWELLING Verified 02/15/24 09:51 Antibiotics) Review of Systems Review of Systems: A 10 system review of systems was completed on the patient and is negative e xcept for what is stated in the HPI. Nursing and ancillary documentation was reviewed. [facility] Past Medical History Medical History Dementia HLD (hyperlipidemia) HTN (hypertension) Pacemaker Surgical History Surgical History S/P clamping of cerebral aneurysm Family History Family History Other Diabetes mellitus HLD (hyperlipidemia) Hypertension Social History Social History Smoking status: Never smoker Second hand tobacco smoke exposure: No Alcohol intake: never Substance use: never Substance use type: does not use Living arrangements: [place] Occupation/Education: retired Gender identity (if verbalized by the patient): Female Spiritual care concerns: No Exam Narrative: GENERAL: Well-appearing, well-nourished, and in no acute distress. HEAD: Normocephalic, atraumatic. EYES: PERRLA and EOMI. ENT: Nares clear, no rhinorrhea or epistaxis. Mucous membranes moist. NECK: Supple. CHEST: Clear to auscultation. No respiratory distress. HEART: Regular rate and rhythm. No murmur heard. Normal peripheral pulses. ABDOMEN: Soft, nontender, nondistended, normal active bowel sounds. EXTREMITIES: Normal range of motion in all extremities except for right lower extremity there is an effusion present to the right knee there is no redness of the skin. No edema. SKIN: Warm, dry, no rash. NEURO: No focal deficits. Alert and oriented x3. PSYCH: Normal mood and affect. Course Vital Signs Vital signs: Vital Signs Temperature 36.7 C 02/15/24 09:45 Pulse Rate 83 02/15/24 09:45 Respiratory Rate 16 02/15/24 09:45 Blood Pressure 156/99 H 02/15/24 09:45 Pulse Oximetry 98 02/15/24 09:45 Oxygen Delivery Room Air 02/15/24 09:45 Temperature 36.7 C 02/15/24 09:45 Pulse Rate 83 02/15/24 09:45 Respiratory Rate 16 02/15/24 09:45 Blood Pressure 156/99 H 02/15/24 09:45 Pulse Oximetry 98 02/15/24 09:45 Oxygen Delivery Room Air 02/15/24 09:45 Medical Decision Making MDM Narrative Medical decision making narrative: differential diagnosis includes arthritis with knee effusion, traumatic knee effusion, fracture, plain film x-rays were obtained of the right knee that showed a large joint effusion with a 12 mm irregular loose body in the suprapatellar pouch region. Plan will be to place the patient in a knee immobilizer and have the patient follow-up with orthopedics Vital Signs Vital Signs: Vital Signs Temperature 36.7 C 02/15/24 09:45 Pulse Rate 83 02/15/24 09:45 Respiratory Rate 16 02/15/24 09:45 Blood Pressure 156/99 H 02/15/24 09:45 Pulse Oximetry 98 02/15/24 09:45 Oxygen Delivery Room Air 02/15/24 09:45 Temperature 36.7 C 02/15/24 09:45 Pulse Rate 83 02/15/24 09:45 Respiratory Rate 16 02/15/24 09:45 Blood Pressure 156/99 H 02/15/24 09:45 Pulse Oximetry 98 02/15/24 09:45 Oxygen Delivery Room Air 02/15/24 09:45 Discharge Plan Discharge Clinical Impression: Effusion of right knee, Arthritis of knee, right Patient Disposition: NH [facility]/Asst Living Condition: Stable Instructions: Antibiotic Form, Osteoarthritis (ED), Swollen Knee Joint (ED), Knee Immobilizer (ED) Additional Instructions: please wear the knee immobilizer for support of your knee. It is recommended that you follow-up with orthopedics Prescriptions: No Action amlodipine 5 mg tablet 5 mg PO HS atorvastatin 10 mg tablet 10 mg PO DAILY donepezil 10 mg tablet 10 mg PO QHS ezetimibe 10 mg tablet 10 mg PO DAILY furosemide 20 mg tablet 10 mg PO QAM Patient Comments: on provided med list memantine 10 mg tablet 10 mg PO BID sertraline 50 mg tablet 50 mg PO DAILY Patient Comments: on provided med list albuterol sulfate 90 mcg/actuation HFA aerosol inhaler 2 puff inhalation QID PRN (Reason: shortness of breath or wheezing) Qty: 6.7 0RF benzonatate 200 mg capsule 200 mg PO TID PRN (Reason: cough) Qty: 20 0RF melatonin 5 mg Tablet 5 mg PO HS PRN (Reason: Insomnia) amoxicillin-pot clavulanate 875-125 mg tablet 1 tablet PO Q12H 5 Days Qty: 10 0RF doxycycline hyclate 100 mg tablet 100 mg PO BID 5 Days Qty: 10 0RF Follow-up/Referrals: José Miguel Mullins MD [Physician] - UNKNOWN,DOCTOR [Primary Care Provider] - Time of Disposition: 10:48
== END 2024-02-15 11:04 ==
PROVIDERS: Emergency Provider Emergency Medicine
DX: M17.11 Unilateral primary osteoarthritis, right knee (principal); M25.461 Effusion, right knee; F03.90 Unspecified dementia, unspecified severity, without behavioral disturbance, psychotic disturbance, mood disturbance, and anxiety; E78.5 Hyperlipidemia, unspecified; I10 Essential (primary) hypertension; Z95.0 Presence of cardiac pacemaker; Z79.899 Other long term (current) drug therapy
CPT/HCPCS: 73564; 99283